=== PATIENT | male | born 1965 | race Asian ===

== ENCOUNTER 2017-03-02 11:38 | Emergency (ER) | payer MEDICAID, OTHER ==
[~2017-03-02] VITALS: Ht 167.6 cm; Wt 65.0 kg
[2017-03-02 11:54] VITALS: Ht 167.6 cm; Wt 65.0 kg
[2017-03-02] MEDS ORDERED: KETOROLAC 60 MG INJ IM STA (13:00)
[2017-03-02] MEDS ORDERED: TRAM50TA2 PO (13:33)
[2017-03-02] MEDS ORDERED: IBUP-1542 PO (13:33)
--- NOTE | 2017-03-02 13:36 | ERD ---
ER Documentation Chief Complaint Date/Time DATE: 03/02/17 TIME: 13:34 Chief Complaint Back pain radiating down R leg X 2 months . no injury or fall. HPI This 51-year-old male presents with low back pain for last 2 months. Radiates to his right buttock and right thigh. Denies any history of trauma. He was seen at another hospital and given a short course of Winn and Medrol Dosepak. He complains of persistent pain. Denies fevers, vomiting, shortness breath or chest pain, numbness, weakness. Denies urinary complaints. ROS All systems reviewed and are negative except as per history of present illness. Medications Home Meds Active Scripts Ibuprofen* (Motrin*) 600 Mg Tab, 600 MG PO Q6, #30 TAB Prov:KRISTEN AU MD 03/02/17 Tramadol HCl (Tramadol HCl) 50 Mg Tablet, 50 MG PO Q4 Y for PAIN, #20 TAB Prov:KRISTEN AU MD 03/02/17 Allergies Allergies: Coded Allergies: No Known Allergy (Unverified , 03/02/17) PMhx/Soc Medical and Surgical Hx: pt denies Medical Hx, pt denies Surgical Hx Hx Alcohol Use: No Hx Substance Use: No Hx Tobacco Use: No Physical Exam Vitals Vital Signs Date Time Temp Pulse Resp B/P Pulse Ox O2 Delivery O2 Flow Rate FiO2 03/02/17 11:54 97.8 76 18 126/80 97 Physical Exam Const: [] Alert, [id number] per Head: Atraumatic Eyes: Normal Conjunctiva ENT: Normal External Ears, Nose and Mouth. Neck: Full range of motion..~ No meningismus. Resp: Clear to auscultation bilaterally Cardio: Regular rate and rhythm, no murmurs Abd: Soft, non tender, non distended. Normal bowel sounds Skin: No petechiae or rashes Back: No midline or flank tenderness. Tenderness in the L4-L5 area and positive straight leg raise on the right. No weakness. Normal gait. No CVA tenderness. Ext: No cyanosis, or edema Neur: Awake and alert Psych: Normal Mood and Affect Results 24 hrs Current Medications Medications (Trade) Dose Ordered Sig/Roeml Route PRN Reason Start Time Stop Time Status Last Admin Dose Admin Ketorolac Tromethamine (Toradol) 60 mg ONCE STAT IM 03/02/17 13:00 03/02/17 13:01 DC 03/02/17 13:07 Procedures/MDM Patient presents with signs and symptoms of sciatica without signs of neurologic deficit, cauda equina syndrome, bacterial infection. He was given Toradol 60 mg IM and will treated with tramadol and ibuprofen at home instructions for back exercises. He was advised to follow-up with primary care for further evaluation treatment I recommend physical therapy. The patient was stable with no new complaints during the ER course. Clinically, there is no current evidence to suggest meningitis, sepsis, acute abdomen, pneumonia, acute coronary syndrome, pulmonary embolism, or any other emergent condition appearing to require further evaluation or hospitalization. The patient should certainly return for any new or worsening symptoms per the aftercare instructions. They should otherwise follow-up with her primary care doctor for reevaluation this week. Departure Diagnosis: Primary Impression: Back pain Back pain location: low back pain Chronicity: acute Back pain laterality: right Sciatica presence: with sciatica Sciatica laterality: sciatica of right side Qualified Code: M54.41 - Acute right-sided low back pain with right -sided sciatica Condition: Stable Patient Instructions: Back Exercises, Lumbar, Back Pain W/ Sciatica Additional Instructions: Follow-up with primary doctor for further evaluation and treatment. Recommend physical therapy. Recheck otherwise for new or worsening symptoms-fevers, weakness, new symptoms KRISTEN AU MD Mar 02, 2017 13:36
== END 2017-03-02 14:30 | disposition home or self-care (01) ==
LOC: FTE 11:38
DX: M54.41 Lumbago with sciatica, right side (principal)
CPT/HCPCS: 96372; J1885; Z7502

== ENCOUNTER 2017-05-18 07:45 | Emergency (ER) | payer MEDICAID ==
[~2017-05-18] VITALS: Ht 170.2 cm; Wt 66.5 kg
[~2017-05-18 07:45] MED LIST: IBUP-1542 PO; TRAM50TA2 PO
[2017-05-18 07:48] VITALS: Ht 170.2 cm; Wt 66.5 kg
[2017-05-18] MEDS ORDERED: LIDOCAINE 1% (MDV) 20 ML INJ SC ONE (09:00)
[2017-05-18] MEDS ORDERED: IBUPROFEN 800 MG TAB PO ONE (09:00)
[2017-05-18] MEDS ORDERED: SULF1TAB31 PO (10:11)
[2017-05-18] MEDS ORDERED: CEPH-443 PO (10:11)
[2017-05-18] MEDS ORDERED: IBUP-1542 PO (10:12)
--- NOTE | 2017-05-18 10:14 | ERD ---
ER Documentation Chief Complaint Date/Time DATE: 05/18/17 TIME: 10:13 Chief Complaint pt bib self with c/o "bump to left ear/cheek area x 1 yr" pain today HPI This is a 51-year-old male who presents the emergency department today complaining of a bump to the left side of his face for the past 6 months that is now bigger. States that one month ago he went to [facility] and was given some cream to put on it. Denies any fevers or chills. ROS All systems reviewed and are negative except as per history of present illness. Medications Home Meds Active Scripts Ibuprofen* (Motrin*) 600 Mg Tab, 600 MG PO Q6, #30 TAB Prov:JOHNY STORM PA-C 05/18/17 Sulfamethoxazole/Trimethoprim* (Bactrim Ds* Tablet) 1 Each Tablet, 1 TAB PO BID for 7 Days, #14 TAB Prov:JOHNY STORM PA-C 05/18/17 Cephalexin* (Keflex*) 500 Mg Capsule, 500 MG PO QID for 7 Days, CAP Prov:JOHNY STORM PA-C 05/18/17 Ibuprofen* (Motrin*) 600 Mg Tab, 600 MG PO Q6, #30 TAB Prov:KRISTEN AU MD 03/02/17 Tramadol HCl (Tramadol HCl) 50 Mg Tablet, 50 MG PO Q4 Y for PAIN, #20 TAB Prov:KRISTEN AU MD 03/02/17 Allergies Allergies: Coded Allergies: No Known Allergy (Unverified , 05/18/17) PMhx/Soc Medical and Surgical Hx: pt denies Medical Hx, pt denies Surgical Hx Hx Alcohol Use: No Hx Substance Use: No Hx Tobacco Use: No Smoking Status: Never smoker Physical Exam Vitals Vital Signs Date Time Temp Pulse Resp B/P Pulse Ox O2 Delivery O2 Flow Rate FiO2 05/18/17 07:48 97.6 72 16 131/82 98 Physical Exam Const: NAD Head: Atraumatic Eyes: Normal Conjunctiva ENT: Normal External Ears, Nose and Mouth. Neck: Full range of motion..~ No meningismus. Resp: Clear to auscultation bilaterally Cardio: Regular rate and rhythm, no murmurs Abd: Soft, non tender, non distended. Normal bowel sounds Skin: 2 cm abscess left side of face with fluctuance and localized erythema. No purulent drainage. Back: No midline or flank tenderness Ext: No cyanosis, or edema Neur: Awake and alert Psych: Normal Mood and Affect Results 24 hrs Current Medications Medications (Trade) Dose Ordered Sig/Romel Route PRN Reason Start Time Stop Time Status Last Admin Dose Admin Lidocaine (Xylocaine 1% (Mdv) 20 ml) 20 ml ONCE ONCE SC 05/18/17 09:00 05/18/17 09:01 DC Ibuprofen (Motrin) 800 mg ONCE ONCE PO 05/18/17 09:00 05/18/17 09:01 DC 05/18/17 08:52 Procedures/MDM This is a 51-year-old male who presents to the emergency department today for a bump to the left side of his face for the past 6 months. Patient was given triamcinolone cream by [facility]. Patient did have a little by 2 cm abscess to the left side of his face that did have some fluctuance. I explained that the risks and benefits of draining the area and the patient agreed to proceed. The wound was cleaned in usual sterile fashion. Patient tolerated the procedure well and there were no complications. When I injected the lidocaine into the area there was a small hole and the abscess started to drain. I did not further open up the area given that it was draining. I did not feel the need to use an 11 blade at that time. Copious discharge was removed from the area. There was no wound packing used. Abscess Incision and Drainage with irrigation by me: Location: left side of face Anesthesia: [Local 1% Lidocaine] 2 cc Complications: [Neurovascularly intact post procedure] Patient's skin symptoms have stabilized while they have been evaluated in the department and are appropriate for outpatient care and work up. Exam and w/u not consistent w/ sepsis, deep space infection, or foreign body. 48 hour wound check. Scar minimization instructions given. Patient was given prescription for Bactrim, Keflex and Motrin. He was given Motrin here in the emergency department. At this time the patient is stable for discharge and outpatient management. Patient should follow up with their PCP in the next 1-2 days. They may return to the emergency department sooner for any persistent or worsening of symptoms. Patient understood and agreed with the plan. Departure Diagnosis: Primary Impression: Abscess Condition: Fair Patient Instructions: Abscess, Incision And Drainage Referrals: [facility] YOU HAVE RECEIVED A MEDICAL SCREENING EXAM AND THE RESULTS INDICATE THAT YOU DO NOT HAVE A CONDITION THAT REQUIRES URGENT TREATMENT IN THE EMERGENCY DEPARTMENT. FURTHER EVALUATION AND TREATMENT OF YOUR CONDITION CAN WAIT UNTIL YOU ARE SEEN IN YOUR DOCTORS OFFICE WITHIN THE NEXT 1-2 DAYS. IT IS YOUR RESPONSIBILITY TO MAKE AN APPOINTMENT FOR FOLOW-UP CARE. IF YOU HAVE A PRIMARY DOCTOR --you should call your primary doctor and schedule an appointment IF YOU DO NOT HAVE A PRIMARY DOCTOR YOU CAN CALL OUR PHYSICIAN REFERRAL HOTLINE AT IF YOU CAN NOT AFFORD TO SEE A PHYSICIAN YOU CAN CHOSE FROM THE FOLLOWING [facility] [address] [facility]. [facility] [address] [facility] [facility] [place] [address] [facility] [facility] [address] [facility] [facility] [address] [facility]. [facility]. [address] Additional Instructions: Call your primary care doctor TOMORROW for an appointment during the next 1-2 days.See the doctor sooner or return here if your condition worsens before your appointment time. Take antibiotics as prescribed Wound check 48 hours Take Motrin for pain JOHNY STORM PA-C May 18, 2017 10:14
== END 2017-05-18 10:22 | disposition home or self-care (01) ==
LOC: FTE 07:45
DX: L02.01 Cutaneous abscess of face (principal)
CPT/HCPCS: 10060; Z7502; Z7610